=== PATIENT | female | born 1990 | race African-American/Black ===

== ENCOUNTER 2017-03-31 16:15 | Emergency (ER) | payer OTHER ==
[~2017-03-31] VITALS: Ht 162.6 cm; Wt 86.2 kg
[~2017-03-31 16:15] MED LIST: NAPR500T3 PO; TRAM50TA PO
[2017-03-31 16:22] VITALS: BP 138/78
--- NOTE | 2017-03-31 17:03 | PHYS DOC ---
Past History Past Medical History: Depression, Other Past Surgical History: No Surgical History Smoking: Cigarettes, Less than 1pk/day Alcohol Use: None Drug Use: Marijuana Adult General Chief Complaint Chief Complaint: ABSCESS HPI HPI This 26-year-old lady presents to us of her right jaw.. She states that this been going on for the past couple of days and was worried that this it might be a brown spider bite History of present stone pain and tenderness of the right jawline with a obvious blistering abscess this area Review of Systems Review of Systems Constitutional: Denies fever or chills [] Eyes: Denies change in visual acuity, redness, or eye pain [] HENT: Denies nasal congestion or sore throat [] abscess in the right jawline Respiratory: Denies cough or shortness of breath [] Cardiovascular: No additional information not addressed in HPI [] GI: Denies abdominal pain, nausea, vomiting, bloody stools or diarrhea [] : Denies dysuria or hematuria [] Musculoskeletal: Denies back pain or joint pain [] Integument: Denies rash or skin lesions there is a skin lesion at the right jawline Black about 1 cm diameter Neurologic: Denies headache, focal weakness or sensory changes [] Endocrine: Denies polyuria or polydipsia [] Allergies Allergies Allergies Coded Allergies Type Severity Reaction Last Updated Verified Penicillins Allergy Unknown 03/31/17 Yes Physical Exam Physical Exam Constitutional: Well developed, well nourished, no acute distress, non-toxic appearance. [] HENT: Normocephalic, atraumatic, bilateral external ears normal, oropharynx moist, no oral exudates, nose normal. [] Eyes: PERRLA, EOMI, conjunctiva normal, no discharge. [] Neck: Normal range of motion, no tenderness, supple, no stridor. [] Cardiovascular:Heart rate regular rhythm, no murmur [] Lungs & Thorax: Bilateral breath sounds clear to auscultation [] Abdomen: Bowel sounds normal, soft, no tenderness, no masses, no pulsatile masses. [] Skin: Warm, dry, no erythema, no rash. [] Back: No tenderness, no CVA tenderness. [] Extremities: No tenderness, no cyanosis, no clubbing, ROM intact, no edema. [] Neurologic: Alert and oriented X 3, normal motor function, normal sensory function, no focal deficits noted. [] Psychologic: Affect normal, judgement normal, mood normal. [] Current Patient Data Vital Signs Vital Signs Date Time Temp Pulse Resp B/P (MAP) Pulse Ox O2 Delivery O2 Flow Rate FiO2 03/31/17 16:22 98.1 94 18 100 Room Air EKG EKG [] Radiology/Procedures Radiology/Procedures 1% lidocaine was infiltrated into and around the area was then opened with an 11 blade and culture taken about 1 mL of pus was expressed Impressions: Facial abscess Course & Med Decision Making Course & Med Decision Making Pertinent Labs and Imaging studies reviewed. (See chart for details) Cultures were taken and patient was placed on clindamycin 300 mg by mouth every 6 hours and also given hydrocodone for pain and instructed to scrub the area 2- 3 times daily with soap and water and applied triple antibiotic ointment [] Dragon Disclaimer Dragon Disclaimer This chart was dictated in whole or in part using Voice Recognition software in a busy, high-work load, and often noisy Emergency Department environment. It may contain unintended and wholly unrecognized errors or omissions. Departure Departure: Referrals: PCP,NO (PCP) TYRONE RODRIGUEZ MD March 31, 2017 17:03
[2017-03-31] MEDS ORDERED: HYDR-2758 PO (17:06)
[2017-03-31] MEDS ORDERED: CLIN300C8 PO (17:06)
[2017-03-31] MEDS ORDERED: LIDOCAINE 1% Multi-Dose 20 ML VIAL. IJ ONE (17:15)
== END 2017-03-31 17:13 | disposition home or self-care (01) ==
LOC: ER 16:15
DX: L02.01 Cutaneous abscess of face (principal); F17.210 Nicotine dependence, cigarettes, uncomplicated; F12.10 Cannabis abuse, uncomplicated; Z88.0 Allergy status to penicillin
CPT/HCPCS: 10060; 87070; 99283-25

== ENCOUNTER 2017-05-23 08:18 | Emergency (ER) | payer OTHER ==
[~2017-05-23] VITALS: Ht 154.9 cm; Wt 87.1 kg
[~2017-05-23 08:18] MED LIST changes: +CLIN300C8 PO; +HYDR-2758 PO
[2017-05-23 09:20] VITALS: BP 128/85
[2017-05-23] MEDS ORDERED: CYCL-331 PO (09:20)
[2017-05-23] MEDS ORDERED: METH4TAB2 PO (09:20)
--- NOTE | 2017-05-23 09:21 | PHYS DOC ---
Past History Past Medical History: Depression, Other Past Surgical History: No Surgical History Smoking: Cigarettes, Less than 1pk/day Alcohol Use: None Drug Use: Marijuana Adult General Chief Complaint Chief Complaint: NECK INJURY HPI HPI Patient is a 26 year old female who presents with complaint of neck and back pain. Patient states that she has been having ongoing problems with pain over the past several weeks. Patient states the pain has been along her neck and upper back. 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 Over the past 2-3 days the patient states that her pain has gotten worse. Patient has had visits to the emergency department for treatment which has provided temporary relief. Patient however does not have a primary physician at this time and has not been able to pursue follow-up care. Patient denies any atypical symptoms associated with her pain, specifically no evidence of fevers, changes in vision, unilateral weakness, difficulty with speech or swallowing. Patient states that she also has pain that radiates from her back towards her chest wall. Patient states that she was told 8 years ago that she would need to have a breast reduction as this may lead to problems with back pain. Patient states that her pain is consistent with this assessment. Patient came to the emergency department as she continues to have pain and does not have medications that are able to control her symptoms adequately at this time. Patient rates her pain currently as 8 out of 10. Pain worsens with movement. Review of Systems Review of Systems Constitutional: Denies fever or chills [] Eyes: Denies change in visual acuity, redness, or eye pain [] HENT: Denies nasal congestion or sore throat [] Respiratory: Denies cough or shortness of breath [] Cardiovascular: Denies chest pain [] GI: Denies abdominal pain, nausea, vomiting, bloody stools or diarrhea [] : Denies dysuria or hematuria [] Musculoskeletal: Neck pain, back pain [] Integument: Denies rash or skin lesions [] Neurologic: Denies headache, focal weakness or sensory changes [] Allergies Allergies Allergies Coded Allergies Type Severity Reaction Last Updated Verified Penicillins Allergy Unknown 03/31/17 Yes Physical Exam Physical Exam Constitutional: Alert, afebrile, appears mild to moderate discomfort. [] HENT: Normocephalic, atraumatic, bilateral external ears normal, oropharynx moist, no oral exudates, nose normal. [] Eyes: PERRLA, EOMI, conjunctiva normal, no discharge. [] Neck: Bilateral paraspinous muscle tenderness to palpation running along distribution of trapezius muscles, no midline tenderness, mildly decreased range of motion secondary to pain, trachea midline, no stridor. [] Cardiovascular:Heart rate regular rhythm, no murmur [] Lungs & Thorax: Bilateral breath sounds clear to auscultation [] Abdomen: Bowel sounds normal, soft, no tenderness, no masses, no pulsatile masses. [] Skin: Warm, dry, no erythema, no rash. [] Back: Upper thoracic bilateral paraspinous muscle tenderness to palpation along distribution of trapezius muscles extending towards shoulders, no midline tenderness, no flank ecchymosis. [] Extremities: No obvious deformities, normal range of motion, pulses 2+ in all extremities Neurologic: Alert and oriented X 3, normal motor function, normal sensory function, no focal deficits noted. [] Current Patient Data Vital Signs Vital Signs Date Time Temp Pulse Resp B/P (MAP) Pulse Ox O2 Delivery O2 Flow Rate FiO2 05/23/17 09:20 93 20 128/85 (99) 97 Room Air 05/23/17 08:18 98.7 Lab Results Not performed EKG EKG Interpreted by me: Heart rate 86, sinus rhythm, normal intervals, normal axis, no acute ST/T-wave abnormalities present [] Radiology/Procedures Radiology/Procedures Not performed [] Course & Med Decision Making Course & Med Decision Making Pertinent Labs and Imaging studies reviewed. (See chart for details) Patient's symptoms are consistent with continued cervical and upper thoracic muscle strain. Patient's symptoms appear to be aggravated from her current job. The patient will be started on Medrol Dosepak and cyclobenzaprine to help with symptoms. Patient referred to family medicine for follow-up care. Recommended scheduled follow-up in one week for reevaluation. Advised return emergency department for any worsening symptoms. Patient voiced understanding and in agreement with treatment plan. Dragon Disclaimer Dragon Disclaimer This chart was dictated in whole or in part using Voice Recognition software in a busy, high-work load, and often noisy Emergency Department environment. It may contain unintended and wholly unrecognized errors or omissions. Departure Departure: Impression: Primary Impression: Cervical muscle strain Additional Impression: Upper back strain Disposition: 01 HOME, SELF-CARE Condition: STABLE Referrals: PCP,NO (PCP) Patient Instructions: Back Pain, Adult, Muscle Strain Additional Instructions: Follow-up with primary doctor in 1 week for reevaluation. Return to the emergency department for any worsening symptoms. Scripts Cyclobenzaprine Hcl (CYCLOBENZAPRINE HCL) 10 Mg Tablet 1 TAB PO TID Y for MUSCLE SPASMS, #30 TAB Prov: JELENA COREAS MD 05/23/17 Methylprednisolone (MEDROL) 4 Mg Tab.ds.pk 1 PKG PO UD, #1 PKG Prov: JELENA COREAS MD 05/23/17 Problem Qualifiers Primary Impression: Cervical muscle strain Encounter type: initial encounter Qualified Codes: S16.1XXA - Strain of muscle, fascia and tendon at neck level, initial encounter Additional Impression: Upper back strain Encounter type: initial encounter Qualified Codes: S29.012A - Strain of muscle and tendon of back wall of thorax, initial encounter JELENA COREAS MD May 23, 2017 09:20
--- NOTE | 2017-05-23 12:58 | EKG ---
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
== END 2017-05-23 09:25 | disposition home or self-care (01) ==
LOC: ER 08:18
DX: S39.012A Strain of muscle, fascia and tendon of lower back, initial encounter (principal); S16.1XXA Strain of muscle, fascia and tendon at neck level, initial encounter; F17.210 Nicotine dependence, cigarettes, uncomplicated; F12.10 Cannabis abuse, uncomplicated; Z88.0 Allergy status to penicillin; X58.XXXA Exposure to other specified factors, initial encounter; Y93.89 Activity, other specified; Y99.8 Other external cause status; Y92.89 Other specified places as the place of occurrence of the external cause
CPT/HCPCS: 93005; 99283-25

== ENCOUNTER 2019-06-01 18:55 | Emergency (ER) | payer OTHER ==
[~2019-06-01] VITALS: Ht 162.6 cm; Wt 108.9 kg
[~2019-06-01 18:55] MED LIST changes: +CYCL-331 PO; +HYDR-2155 PO; -HYDR-2758 PO; +METH4TAB2 PO; +NAPR-514 PO; -NAPR500T3 PO
[2019-06-01] MEDS ORDERED: IV NORMAL SALINE 1,000ML 1,000 ML IV SCH (19:16)
--- NOTE | 2019-06-01 19:28 | PHYS DOC ---
Past History Past Medical History: No Pertinent History, Depression, Diabetes, Other Past Surgical History: No Surgical History Smoking: Cigarettes, Less than 1pk/day Alcohol Use: None Drug Use: Marijuana Adult General Chief Complaint Chief Complaint: ABDOMINAL PAIN HPI HPI Patient is a 28-year-old female who presents with complaint of lower abdominal pain that has been off and on for the last few weeks. Patient states that she is approximately 10 weeks and states that she had been seen a few weeks ago at [facility] and was told at that time that she was 7 weeks . She states that she was told that her pain was being caused by urinary tract infection. She states that the pain had improved for period of time but has returned over the last couple of days. She rates pain as moderate and states the pain is worsened with certain movements like stretching from one side to the other. She states that it also hurts more when she lays flat on her back. She denies any nausea or vomiting. She also denies any fever.[] Review of Systems Review of Systems Constitutional: Denies fever or chills [] Respiratory: Denies cough or shortness of breath [] Cardiovascular: No additional information not addressed in HPI [] GI: Complains of lower abdominal pain without vomiting or diarrhea [] : Denies dysuria or hematuria [] Musculoskeletal: Complains of lower back pain [] All other systems were reviewed and found to be within normal limits, except as documented in this note. Current Medications Current Medications Current Medications Medications (Trade) Dose Ordered Sig/Radhika Start Time Stop Time Status Last Admin Dose Admin Sodium Chloride 1,000 ml @ 1,000 mls/hr Q1H 06/01/19 19:16 06/01/19 20:15 UNV Allergies Allergies Allergies Coded Allergies Type Severity Reaction Last Updated Verified Penicillins Allergy Unknown 03/31/17 Yes Physical Exam Physical Exam Constitutional: Well developed, well nourished, no acute distress, non-toxic appearance. [] HENT: Normocephalic, atraumatic, bilateral external ears normal, oropharynx moist, no oral exudates, nose normal. [] Eyes: PERRLA, EOMI, conjunctiva normal, no discharge. [] Neck: Normal range of motion, no tenderness, supple, no stridor. [] Cardiovascular:Heart rate regular rhythm, no murmur [] Lungs & Thorax: Bilateral breath sounds clear to auscultation [] Abdomen: Bowel sounds normal, soft, with mild lower abdominal tenderness. [] Skin: Warm, dry, no erythema, no rash. [] Extremities: No tenderness, no cyanosis, no clubbing, ROM intact. [] Neurologic: Alert and oriented X 3, no focal deficits noted. [] Current Patient Data Vital Signs Vital Signs Date Time Temp Pulse Resp B/P (MAP) Pulse Ox O2 Delivery O2 Flow Rate FiO2 06/01/19 19:03 98.1 64 20 98 Room Air EKG EKG [] Radiology/Procedures Radiology/Procedures [] Impressions: PROCEDURE: OB <14 WKS INDICATION: Pelvic pain COMPARISON: None. TECHNIQUE: Grayscale and color ultrasound images uterus and adnexa. FINDINGS: Uterus: 140 x 93 x 84 mm. Intrauterine gestational sac is identified with a pole with a heart beat of 163. [place]-rump length 34 mm. Too early in to adequately assess the placenta. Suspected hypoechoic lesion left ovary measuring up to 17 mm. Could be a cystic lesion. Right Ovary: 30 x 21 x 21 mm. Left Ovary: 35 x 30 x 29 mm. Vascular flow identified to bilateral ovaries. IMPRESSION: 1. Intrauterine is identified with estimated gestational age of 10 weeks and 2 days with a positive heartbeat. Recommend routine anomaly screening at 18-22 weeks. Electronically signed by: Siva Mackey MD (06/01/2019 8:34 PM) [facility] Course & Med Decision Making Course & Med Decision Making Pertinent Labs and Imaging studies reviewed. (See chart for details) [] Dragon Disclaimer Dragon Disclaimer This electronic medical record was generated, in whole or in part, using a voice recognition dictation system. Departure Departure: Impression: Primary Impression: Abdominal pain affecting Disposition: HOME, SELF-CARE Condition: STABLE Referrals: PCP,NO (PCP) Patient Instructions: Abdominal Pain During Scripts Ondansetron Hcl (ZOFRAN) 4 Mg Tablet 4 MG PO Q6HRS PRN for NAUSEA, #12 TAB Prov: SARAH ELIZABETH Jr. DO 06/01/19 Acetaminophen With Codeine (TYLENOL WITH CODEINE #3 TABLET) 1 Each Tablet 1 TAB PO Q6HRS PRN for PAIN, #12 TAB Prov: SARAH ELIZABETH Jr. DO 06/01/19 SARAH ELIZABETH Jr. DO Jun 01, 2019 19:28
[2019-06-01 20:14] LABS: BACTERIA,URINE 0 /HPF (0-FEW); BILIRUBIN,URINE NEG (NEG); CLARITY,URINE HAZY; COLOR,URINE YELLOW; GLUCOSE,URINE NEG (NEG); NITRITE,URINE NEG (NEG); RBC,URINE 0 /HPF (0-2); SQUAMOUS EPITHELIAL CELL,UR OCC /LPF; UROBILINOGEN,URINE 0.2 mg/dL (0.2 mg/dL); WBC,URINE 0 /HPF (0-4)
[2019-06-01 20:21] LABS: BASO # 0.1 x10^3/uL (0.0-0.2); BASO % 1 % (0-3); EOS # 0.2 x10^3/uL (0.0-0.7); EOS % 2 % (0-3); HEMATOCRIT 33.8 % (36.0-47.0); HEMOGLOBIN 10.8 g/dL (12.0-15.5); LYMPH % 28 % (24-48); MEAN CORPUSCULAR HEMOGLOBIN 28 pg (25-35); MEAN CORPUSCULAR HGB CONC 32 g/dL (31-37); MEAN CORPUSCULAR VOLUME 88 fL (79-100); MONO # 0.7 x10^3/uL (0.0-1.1); MONO % 10 % (0-9); NEUT # 4.2 x10^3uL (1.8-7.7); NEUT % 59 % (31-73); PLATELET COUNT 240 x10^3/uL (140-400); RED BLOOD COUNT 3.84 x10^6/uL (3.50-5.40); RED CELL DISTRIBUTION WIDTH 14.5 % (11.5-14.5); WHITE BLOOD COUNT 7.2 x10^3/uL (4.0-11.0)
[2019-06-01 20:34] LABS: CALCIUM 9.1 mg/dL (8.5-10.1); CREATININE 0.7 mg/dL (0.6-1.0); GFR 120.6; POTASSIUM 4.1 mmol/L (3.5-5.1)
--- NOTE | 2019-06-01 20:37 | RAD ---
INDICATION: Pelvic pain COMPARISON: None. TECHNIQUE: Grayscale and color ultrasound images uterus and adnexa. FINDINGS: Uterus: 140 x 93 x 84 mm. Intrauterine gestational sac is identified with a pole with a heart beat of 163. [place]-rump length 34 mm. Too early in to adequately assess the placenta. Suspected hypoechoic lesion left ovary measuring up to 17 mm. Could be a cystic lesion. Right Ovary: 30 x 21 x 21 mm. Left Ovary: 35 x 30 x 29 mm. Vascular flow identified to bilateral ovaries. IMPRESSION: 1. Intrauterine is identified with estimated gestational age of 10 weeks and 2 days with a positive heartbeat. Recommend routine anomaly screening at 18-22 weeks. Electronically signed by: Siva Mackey MD (06/01/2019 8:34 PM) [facility]
[2019-06-01] MEDS ORDERED: ONDA4TAB7 PO (21:12)
[2019-06-01] MEDS ORDERED: ACET-704 PO (21:12)
[2019-06-01] MEDS ORDERED: ACETAMINOPHEN/CODEINE 300/30MG TABLET ONE (21:45)
[2019-06-01] MEDS ORDERED: ACETAMINOPHEN/CODEINE 300/30MG TABLET PO ONE (21:45)
[2019-06-01 21:47] VITALS: BP 118/79
== END 2019-06-01 21:55 | disposition home or self-care (01) ==
LOC: ER 18:55
DX: O26.891 Other specified pregnancy related conditions, first trimester (principal); R10.30 Lower abdominal pain, unspecified; M54.5 Low back pain; O24.911 Unspecified diabetes mellitus in pregnancy, first trimester; O99.331 Smoking (tobacco) complicating pregnancy, first trimester; Z3A.10 10 weeks gestation of pregnancy; Z88.0 Allergy status to penicillin
CPT/HCPCS: 36415; 76801; 80048; 81001; 84702; 85025; 87086; 99285-25; J7030

== ENCOUNTER 2020-05-19 12:55 | Emergency (ER) | payer MEDICAID, OTHER ==
[~2020-05-19] VITALS: Ht 162.6 cm; Wt 46.8 kg
[~2020-05-19 12:55] MED LIST changes: +ACET-704 PO; +ONDA4TAB7 PO
[2020-05-19 13:01] VITALS: BP 127/100
[2020-05-19] MEDS ORDERED: LIDOCAINE 1% Multi-Dose 20 ML VIAL. ONE (13:49)
--- NOTE | 2020-05-19 13:56 | RAD ---
FINGER(S) LEFT History: Reason: laceration, trauma TO MIDDLE FINGER NAILBED / Spl. Instructions: / History: Pain. Technique: PA view the hand and 3 additional views of the third digit. Comparison: None. Findings: Normal alignment. No fracture. Third digit distal soft tissue swelling. No radiopaque foreign body. Impression: 1. No acute osseous abnormality. 2. Third distal digit soft tissue injury. Electronically signed by: Brock Clarke DO (05/19/2020 1:53 PM) [id number]
[2020-05-19] MEDS ORDERED: LIDOCAINE 1% Multi-Dose 20 ML VIAL. IJ ONE (14:00)
[2020-05-19] MEDS ORDERED: TRAM50TA PO (14:33)
--- NOTE | 2020-05-19 14:37 | PHYS DOC ---
Past History Past Medical History: Anxiety Past Surgical History: No Surgical History Smoking: Cigarettes, Less than 1pk/day Alcohol Use: Occasionally Drug Use: Marijuana Adult General Chief Complaint Chief Complaint: LACERATION/AVULSION HPI HPI Patient is a 29 year old [sex] who presents with male laceration of her nail. She was adjusting a chair when she got caught. She denies any other injuries. She has full sensation. Minimal bleeding. Review of Systems Review of Systems General: Denies fever, chills, sweats, fatigue Eyes: Denies drainage, blurred vision, eye redness HENT: Denies rhinorrhea, sore throat, earache Respiratory: Denies cough, shortness of breath, wheezing Cardiac: Denies edema, palpitations, chest pain GI: Denies abdominal pain, Nausea, vomiting MSK: Denies back pain, neck pain Skin: Denies rash, jaundice Neuro: Denies headache, dizziness Psychiatric: Denies SI/HI Current Medications Current Medications Current Medications Medications (Trade) Dose Ordered Sig/Radhika Start Time Stop Time Status Last Admin Dose Admin Lidocaine HCl 20 ml 1X ONCE 05/19/20 14:00 05/19/20 14:01 DC Allergies Allergies Allergies Coded Allergies Type Severity Reaction Last Updated Verified Penicillins Allergy Unknown 03/31/17 Yes Physical Exam Physical Exam General: Awake, alert, NAD. Well Nourished, well hydrated. Cooperative HEENT: Atraumatic, EOMI, PERRL, airway patent, moist oral mucosa Neck: Supple, trachea midline Respiratory: CTA bilaterally, normal effort, no wheezing/crackles CV: RRR, no murmur, cap refill <2 GI: Soft, nondistended, nontender, no masses MSK: No obvious deformities Skin: Warm, dry, 1 cm laceration through the third finger nailbed with minimal bleeding Neuro: A&O x3, speech NL, sensory and motor grossly intact, no focal deficits Psych: Normal affect, normal mood, not suicidal or homicidal Current Patient Data Vital Signs Vital Signs Date Time Temp Pulse Resp B/P (MAP) Pulse Ox O2 Delivery O2 Flow Rate FiO2 05/19/20 13:01 98.4 67 16 127/100 (109) 99 Room Air EKG EKG [] Radiology/Procedures Radiology/Procedures [] Course & Med Decision Making Course & Med Decision Making Pertinent Labs and Imaging studies reviewed. (See chart for details) Patient is a 29-year-old female who presents to the emergency room with a nailbed laceration. Avulsed nail was removed and the sutures were placed. Glue was also placed. Patient's test results and vitals while in the ED were fully reviewed and discussed with the patient. Patient is stable and at this time does not need admission to the hospital. We have discussed strict return precautions and the importance of following up with their Primary Care Physician. Patient stated understanding and was given an opportunity to ask any questions. Patient is in agreement with plan. Dragon Disclaimer Dragon Disclaimer This electronic medical record was generated, in whole or in part, using a voice recognition dictation system. Departure Departure: Impression: Primary Impression: Nailbed laceration, finger Disposition: HOME/RESIDENCE PRIOR TO ADM Condition: STABLE Referrals: PCP,NO (PCP) Patient Instructions: Nail Bed Injury, [id number] Scripts Tramadol Hcl (TRAMADOL HCL) 50 Mg Tablet 50 MG PO PRN Q6HRS PRN for PAIN for 2 Days, #3 TAB Prov: KAISER GHOTRA MD 05/19/20 Justification of Admission: Justification of Admission: Justification of Admission Dx: No Laceration/Wound Repair Laceration/Wound Repair : Wound Location: upper extremity Wound's Depth, Shape: nail-avulsed Wound Length (cm): 1 Wound Explored: no foreign body removed Betadine Prep?: No Anesthesia: 1% Lidocaine Wound Debrided: moderate Wound Repaired With: sutures, Dermabond Suture Size/Type: 5:0 Number of Sutures: 2 Layer Closure?: No Sterile Dressing Applied?: Yes Splint Applied?: No KAISER GHOTRA MD May 19, 2020 14:37
== END 2020-05-19 14:45 | disposition home or self-care (01) ==
LOC: ER 12:55
DX: S61.313A Laceration without foreign body of left middle finger with damage to nail, initial encounter (principal); F41.9 Anxiety disorder, unspecified; F17.210 Nicotine dependence, cigarettes, uncomplicated; Z88.0 Allergy status to penicillin; W23.0XXA Caught, crushed, jammed, or pinched between moving objects, initial encounter; Y93.89 Activity, other specified; Y92.89 Other specified places as the place of occurrence of the external cause; Y99.8 Other external cause status
CPT/HCPCS: 11730; 11760; 73140; 99284; 99285

== ENCOUNTER 2020-08-03 09:54 | Emergency (ER) | payer MEDICAID ==
[~2020-08-03] VITALS: Ht 167.6 cm; Wt 123.6 kg
--- NOTE | 2020-08-03 10:10 | PHYS DOC ---
Past History Past Medical History: Anxiety, Depression Past Surgical History: No Surgical History Smoking: Cigarettes, Less than 1pk/day Alcohol Use: Occasionally Drug Use: Marijuana General Adult EDM: Chief Complaint: ABDOMINAL PAIN HPI: HPI: The history was obtained from the patient. Patient is a 29-year-old female with PMH depression, anxiety who presents with a chief complaint of vomiting. Patient states just prior to arrival she developed sudden onset vomiting. She notes 2 episodes of nonbloody nonbilious emesis. She notes some mild left upper quadrant pain. States pain is aching in nature. She states she also developed shortness of breath after this. EMS states the patient did appear quite tachypneic and in respiratory distress in route. They state with breathing coaching her respiratory distress resolved. Patient denies any alcohol or drug ingestions. She endorses smoking tobacco. States she is currently menstruating. Denies any urinary symptoms. Denies syncope. Denies any previous abdominal surgical history. Does not take oral contraceptive pills. Denies any chest pain. States her shortness of breath is resolved. Denies cough or fever. Has not tried any medicine prior to arrival. States this is never happened before. Patient also notes she has been under a significant amount of stress recently. She notes that she is been fighting with her baby's father and she has lost 2 family members over the past month. Patient denies any history of immobilization greater than 48 hours, recent hospitalizations, recent surgery, recent trauma, , oral contraceptive usage, hormone replacement therapy, air travel greater than 8 hours, recent infectious disease, or general deterioration of their overall condition. Review of Systems: Review of Systems: Constitutional: Denies fever or chills Eyes: Denies change in visual acuity HENT: Denies nasal congestion or sore throat Respiratory: Positive for shortness of breath Cardiovascular: Denies chest pain or edema GI: Positive for abdominal pain and vomiting : Denies dysuria Musculoskeletal: Denies back pain or joint pain Integument: Denies rash Neurologic: Denies headache, focal weakness or sensory changes Endocrine: Denies polyuria or polydipsia Lymphatic: Denies swollen glands Psychiatric: Denies depression or anxiety Heart Score: Risk Factors: Risk Factors: DM, Current or recent (<one month) smoker, HTN, HLP, family history of CAD, obesity. Risk Scores: Score 0 - 3: 2.5% MACE over next 6 weeks - Discharge Home Score 4 - 6: 20.3% MACE over next 6 weeks - Admit for Clinical Observation Score 7 - 10: 72.7% MACE over next 6 weeks - Early Invasive Strategies Current Medications: Current Meds: Current Medications Medications (Trade) Dose Ordered Sig/Radhika Start Time Stop Time Status Last Admin Dose Admin Metoclopramide HCl (Reglan Vial) 10 mg 1X ONCE 08/03/20 10:15 08/03/20 10:16 Sodium Chloride 1,000 ml @ 1,000 mls/hr 1X ONCE 08/03/20 10:15 08/03/20 11:14 Allergies: Allergies: Allergies Coded Allergies Type Severity Reaction Last Updated Verified Penicillins Allergy Unknown 03/31/17 Yes Physical Exam: PE: Constitutional: Well developed, well nourished, no acute distress, non-toxic appearance. [] HENT: Normocephalic, atraumatic, bilateral external ears normal, oropharynx moist, no oral exudates, nose normal. [] Eyes: PERRLA, EOMI, conjunctiva normal, no discharge. [] Neck: Normal range of motion, no tenderness, supple, no stridor. [] Cardiovascular:Heart rate regular rhythm, no murmur [] Lungs & Thorax: Bilateral breath sounds clear to auscultation [] Abdomen: Mild reproducible left lower quadrant tenderness to palpation. No involuntary guarding or rigidity noted. No acute peritonitis. Skin: Warm, dry, no erythema, no rash. [] Back: No tenderness, no CVA tenderness. [] Extremities: No tenderness, no cyanosis, no clubbing, ROM intact, no edema. [] Neurologic: Alert and oriented X 3, normal motor function, normal sensory functi on, no focal deficits noted. [] Psychologic: Affect normal, judgement normal, mood normal. [] Current Patient Data: Labs: Laboratory Tests Test 08/03/20 10:20 08/03/20 10:28 08/03/20 10:48 Glucose (Fingerstick) 119 mg/dL White Blood Count 7.2 x10^3/uL Red Blood Count 4.06 x10^6/uL Hemoglobin 11.6 g/dL Hematocrit 35.7 % Mean Corpuscular Volume 88 fL Mean Corpuscular Hemoglobin 29 pg Mean Corpuscular Hemoglobin Concent 32 g/dL Red Cell Distribution Width 14.3 % Platelet Count 212 x10^3/uL Neutrophils (%) (Auto) 66 % Lymphocytes (%) (Auto) 23 % Monocytes (%) (Auto) 8 % Eosinophils (%) (Auto) 2 % Basophils (%) (Auto) 1 % Neutrophils # (Auto) 4.7 x10^3uL Lymphocytes # (Auto) 1.7 x10^3/uL Monocytes # (Auto) 0.5 x10^3/uL Eosinophils # (Auto) 0.1 x10^3/uL Basophils # (Auto) 0.1 x10^3/uL D-Dimer (Joi) 0.73 mg/L Maternal Serum HCG Beta Subunit < 1 mIU/mL Sodium Level 139 mmol/L Potassium Level 3.4 mmol/L Chloride Level 105 mmol/L Carbon Dioxide Level 25 mmol/L Anion Gap 9 Blood Urea Nitrogen 9 mg/dL Creatinine 1.0 mg/dL Estimated GFR (Cockcroft-Gault) 79.3 BUN/Creatinine Ratio 9 Glucose Level 121 mg/dL Calcium Level 8.5 mg/dL Magnesium Level 2.1 mg/dL Total Bilirubin 0.4 mg/dL Aspartate Amino Transf (AST/SGOT) 40 U/L Alanine Aminotransferase (ALT/SGPT) 23 U/L Alkaline Phosphatase 156 U/L Total Protein 7.9 g/dL Albumin 3.5 g/dL Albumin/Globulin Ratio 0.8 Lipase 225 U/L Ethyl Alcohol Level < 10 mg/dL Urine Collection Type Unknown Urine Color Red Urine Clarity Turbid Urine pH Urine Specific [place] Urine Protein Urine Glucose (UA) mg/dL Urine Ketones (Stick) mg/dL Urine Blood Urine Nitrite Urine Bilirubin Urine Urobilinogen Dipstick mg/dL Urine Leukocyte Esterase Urine RBC Tntc /HPF Urine WBC 1-4 /HPF Urine Squamous Epithelial Cells Mod /LPF Urine Bacteria 0 /HPF Urine Opiates Screen Neg Urine Methadone Screen Neg Urine Barbiturates Neg Urine Phencyclidine Screen Neg Urine Amphetamine/Methamphetamine Neg Urine Benzodiazepines Screen Neg Urine Cocaine Screen Neg Urine Cannabinoids Screen Pos Urine Ethyl Alcohol Neg Current Medications Medications (Trade) Dose Ordered Sig/Radhika Route PRN Reason Start Time Stop Time Status Last Admin Dose Admin Sodium Chloride 1,000 ml @ 1,000 mls/hr 1X ONCE IV 08/03/20 10:15 08/03/20 11:14 DC 08/03/20 10:37 Metoclopramide HCl (Reglan Vial) 10 mg 1X ONCE IVP 08/03/20 10:15 08/03/20 10:16 DC 08/03/20 10:37 Dicyclomine HCl (Bentyl) 20 mg 1X ONCE PO 08/03/20 12:15 08/03/20 12:16 DC 08/03/20 12:10 Famotidine (Pepcid) 20 mg 1X ONCE PO 08/03/20 12:15 08/03/20 12:16 DC 08/03/20 12:09 Ketorolac Tromethamine (Toradol 15mg Vial) 15 mg 1X ONCE IVP 08/03/20 12:15 08/03/20 12:16 DC 08/03/20 12:09 Iohexol (Omnipaque 350 Mg/ml) 100 ml 1X ONCE IV 08/03/20 12:15 08/03/20 12:16 DC 08/03/20 12:15 Info (Do NOT chart on this entry -- for MONITORING) 1 each PRN DAILY PRN MC SEE COMMENTS 08/03/20 12:15 08/05/20 12:14 Vital Signs: Vital Signs Date Time Temp Pulse Resp B/P (MAP) Pulse Ox O2 Delivery O2 Flow Rate FiO2 08/03/20 09:58 98.4 55 16 168/82 (110) 100 Room Air EKG: EKG: [] EKG consistent with normal sinus rhythm. Ventricular rate of 54 bpm. [place] normal. Flipped T waves noted in lead III. No acute ischemic changes appreciated. Intervals normal. Radiology/Procedures: Radiology/Procedures: [address] [address] IMAGING REPORT Signed PATIENT: MANSOOR GUILLEN ACCOUNT: [id number] : 1990 LOCATION: ER AGE: 29 SEX: F EXAM STATUS: REG ER ORD. PHYSICIAN: BEV BOSE DO REASON: SOB. concern for PE -100mls omni 350 PROCEDURE: CT ANGIOGRAPHY CHEST Examination: CT ANGIOGRAPHY CHEST History: SOB. concern for PE -100mls omni 350 Comparison/Correlation: None Findings: Axial images of the chest were obtained following IV contrast clinical history arteriography protocol. Maximum intensity projection images provided. Sagittal and coronal reformatted images provided. Conus medullaris appears normal with no thromboembolic disease. Tracheobronchial tree is unremarkable. No infiltrate or pleural effusion. No pneumothorax. No enlarged thoracic lymph nodes. Thoracic aorta morphology is grossly unremarkable. Small hiatal hernia is present. Minimal contrast suggested within the partially visualized upper pelvic calyceal systems. Renal calculus involving excluded. Bony structures are unremarkable. Impression: No PE or infiltrate. Small hiatal hernia. RS Compliance Statement: One or more of the following individualized dose reduction techniques were utilized for this examination: 1. Automated exposure control 2. Adjustment of the mA and/or kV according to patient size 3. Use of iterative reconstruction technique Electronically signed by: Edward Gonzalez MD (08/03/2020 1:09 PM) [id number] DICTATED AND SIGNED BY: EDWARD GONZALEZ MD DATE: 08/03/20 1309 CC: PCP,NO; BEV BOSE DO ~ [][address] [address] IMAGING REPORT Signed PATIENT: MANSOOR GUILLEN ACCOUNT: [id number] : 1990 LOCATION: ER AGE: 29 SEX: F EXAM STATUS: REG ER ORD. PHYSICIAN: BEV BOSE DO REASON: confusion - wait for preg test PROCEDURE: CT HEAD WO CONTRAST CT HEAD WO CONTRAST Date: 08/03/2020 10:01 AM Clinical Indication: Reason: confusion - wait for preg test / Spl. Instructions: / History: Comparison: None. Technique: 5 mm axial tomographic images were obtained of the head without contrast. These were viewed on brain and bone windows. One or more of the following dose reduction techniques were utilized: Automated exposure control (AEC), Adjustment of mA and/or kV according to patient size, Use of iterative reconstruction technique such as ASiR, CT scan done according to ALARA and image gently/image wisely Findings: The brain parenchyma is normal in attenuation. No intra- or extra-axial mass or fluid collection. No acute hemorrhage. The ventricles are normal in size, shape, and morphology. The rogel-white matter junction is normal. The subarachnoid cisterns are patent. The visualized paranasal sinuses are normal. The visualized portions of the orbits and globes are normal. The mastoid air cells are clear. The transmitter supervisor topogram shows no lytic lesion or fracture. Impression: No acute intracranial process. Electronically signed by: Melvin Castellano MD (08/03/2020 11:13 AM) [id number] DICTATED AND SIGNED BY: MELVIN CASTELLANO MD DATE: 08/03/20 1111 CC: PCP,NO; BEV BOSE DO ~ Course & Med Decision Making: Course & Med Decision Making Pertinent Labs and Imaging studies reviewed. (See chart for details) [] Patient is a 29-year-old female who presents with chief complaint of sudden onset shortness of breath with vomiting. Initial vital signs unremarkable. EKG unremarkable. Given my estimation that the patient is low risk for Wells criteria and PERC criteria d-dimer was obtained. This was elevated. CT PE study was obtained and was unremarkable. Labs been grossly unremarkable as well. Remainder of work-up benign. Patient was given medication for her mild abdominal discomfort and vomiting. On repeat examination her symptoms have improved. She does have very mild elevation of her alk phos however she reproducible right upper quadrant tenderness, leukocytosis, fever. I have very low suspicion for gallbladder etiology. At this time patient is appropriate for discharge home. She will be discharged home with nausea medication. Instructed to follow-up with her primary care physician in the next 2 to 3 days. Return precautions discussed and understood. Stable for discharge home. Kristopher Disclaimer: Kristopher Disclaimer: This electronic medical record was generated, in whole or in part, using a voice recognition dictation system. Departure Departure: Impression: Primary Impression: Abdominal pain Qualified Codes: R10.32 - Left lower quadrant pain Additional Impression: Nausea Disposition: 01 HOME/RESIDENCE PRIOR TO ADM Condition: STABLE Referrals: PCP,NO (PCP) Additional Instructions: Please follow-up with your primary care physician in the next 2 to 3 days. Discharge Abdominal Pain Re-Check Precautions: I'm unsure of the specific cause of your abdominal pain. However, at this point I feel that you are low risk for a life threatening emergency and that disc harge from the Emergency Department is safe. There is a very small possibility that you are just too early in your clinical course for our physical exam/labs/imaging to ascertain whether or not you have an emergent condition that could potentially cause permanent disability or be life threatening. As such, it is very important that you follow up with your primary doctor or return to the Emergency Department in 12-24 hours for re-assessment and further evaluation if clinically indicated. If you develop new or worsening symptoms then you should return to the Emergency Department immediately. Home Care Instructions: Abdominal Pain Many things may cause abdominal pain. Your ER visit might not show the exact reason you are having pain. In some cases, additional time is needed to determine if the cause is serious. Therefore you may be told to go home and watch for any changes or worsening in your condition. Before that, we may not know if you need more testing, or if hospitalization or surgery is necessary. If its not something serious, the pain may go away without treatment or get better with simple things like avoiding certain foods or medications. In the ER, your doctor asks you questions, examines you and in some cases, may order tests. These help doctors decide if the pain is from something serious. Tests are not always done and may not provide a definite answer. There can still be a problem, even with normal test results. Abdominal pain may be caused by something serious (like appendicitis), which is not obvious right away. Because of this, another checkup is needed to make sure you are OK. It is VERY IMPORTANT to follow up for a repeat exam, especially if you have any symptoms that are not going away or are getting worse. We recommend that you RETURN TO THE EMERGENCY ROOM IN 8-12 HOURS to be rechecked. If you cannot, you may follow up with your primary care doctor or clinic. It is important that you follow all of the instructions below. RETURN TO THE EMERGENCY ROOM IMMEDIATELY IF: The pain does not go away or gets worse. You have a fever. You keep throwing up and cannot keep anything down. You pass bloody or black stools. You develop new symptoms. HOME CARE INSTRUCTIONS Come back to the ER (or see your doctor) in 8-12 hours. DO NOT take laxatives unless directed by your doctor. Avoid the use of alcohol Take pain medicine only as directed by your doctor. Only take [id number] or prescription medicine as directed by your doctor. Try a clear liquid diet (broth, tea, jello, water) for the next 12-24 hours. Slowly move to a bland diet as tolerated. Do not eat greasy, fatty or spicy foods. Once you start getting better, go back to a normal, healthy diet, slowly over a few days. DISCHARGE PT INSTRUCTIONS: YOU HAVE BEEN EVALUATED FOR ABDOMINAL PAIN. HOWEVER, WE ARE UNABLE TO PROVIDE A DEFINITE CAUSE OF YOUR SYMPTOMS. EVEN THOUGH YOUR TESTS MAY HAVE BEEN NORMAL, YOU STILL COULD HAVE A SERIOUS CAUSE FOR YOUR ABDOMINAL PAIN, INCLUDING APPENDICITIS. THE BEST TEST TO DETERMINE IF YOU HAVE A SERIOUS CAUSE IS RE-EXAMINATION OVER TIME. WE USED TO ADMIT PATIENTS TO THE HOSPITAL FOR THIS, BUT CAN NOW ALLOW YOU TO GO HOME, & RETURN TO OUR ER THE NEXT DAY FOR RE- EXAMINATION. THUS, WE WOULD LIKE YOU TO RETURN TO OUR ER TOMORROW FOR YOUR RE- EVALUATION. (IF YOUR SYMPTOMS HAVE GONE AWAY, THEN YOU DO NOT NEED TO RETURN.) IF YOUR SYMPTOMS GET WORSE BETWEEN NOW & THEN, YOU SHOULD RETURN IMMEDIATELY & NOT WAIT UNTIL TOMORROW. SYMPTOMS TO LOOK FOR WORSENING PAIN, HIGH FEVER, PERSISTENT VOMITING [NOT CONTROLLED BY MEDICINE], AND/OR OVERALL WORSENING OF YOUR CONDITION. Scripts Ondansetron Hcl (ZOFRAN) 8 Mg Tablet 4 MG PO TID PRN PRN for NAUSEA, #9 TAB Prov: BEV BOSE DO 08/03/20 Dicyclomine Hcl (DICYCLOMINE HCL) 20 Mg Tablet 20 MG PO QIDPRN PRN for PAIN, #16 TAB Prov: BEV BOSE DO 08/03/20 Justification of Admission: Justification of Admission: Justification of Admission Dx: N/A BEV BOSE DO Aug 03, 2020 10:10
[2020-08-03] MEDS ORDERED: IV NORMAL SALINE 1,000ML 1,000 ML IV ONE (10:15)
[2020-08-03] MEDS ORDERED: METOCLOPRAMIDE HCL 10 MG/2 ML VIAL. IVP ONE (10:15)
--- NOTE | 2020-08-03 10:36 | EKG ---
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
[2020-08-03 10:52] LABS: BASO # 0.1 x10^3/uL (0.0-0.2); BASO % 1 % (0-3); EOS # 0.1 x10^3/uL (0.0-0.7); EOS % 2 % (0-3); HEMATOCRIT 35.7 % (36.0-47.0); HEMOGLOBIN 11.6 g/dL (12.0-15.5); LYMPH # 1.7 x10^3/uL (1.0-4.8); LYMPH % 23 % (24-48); MEAN CORPUSCULAR HEMOGLOBIN 29 pg (25-35); MEAN CORPUSCULAR HGB CONC 32 g/dL (31-37); MEAN CORPUSCULAR VOLUME 88 fL (79-100); MONO # 0.5 x10^3/uL (0.0-1.1); MONO % 8 % (0-9); NEUT # 4.7 x10^3uL (1.8-7.7); NEUT % 66 % (31-73); PLATELET COUNT 212 x10^3/uL (140-400); RED BLOOD COUNT 4.06 x10^6/uL (3.50-5.40); RED CELL DISTRIBUTION WIDTH 14.3 % (11.5-14.5); WHITE BLOOD COUNT 7.2 x10^3/uL (4.0-11.0)
[2020-08-03 11:03] LABS: CALCIUM 8.5 mg/dL (8.5-10.1); GFR 79.3; POTASSIUM 3.4 mmol/L (3.5-5.1)
[2020-08-03 11:07] LABS: ALBUMIN 3.5 g/dL (3.4-5.0); ALBUMIN/GLOBULIN RATIO 0.8 (1.0-1.7); MAGNESIUM 2.1 mg/dL (1.8-2.4); TOTAL BILIRUBIN 0.4 mg/dL (0.2-1.0); TOTAL PROTEIN 7.9 g/dL (6.4-8.2)
--- NOTE | 2020-08-03 11:16 | RAD ---
CT HEAD WO CONTRAST Date: 08/03/2020 10:01 AM Clinical Indication: Reason: confusion - wait for preg test / Spl. Instructions: / History: Comparison: None. Technique: 5 mm axial tomographic images were obtained of the head without contrast. These were viewed on brain and bone windows. One or more of the following dose reduction techniques were utilized: Automated exposure control (AEC), Adjustment of mA and/or kV according to patient size, Use of iterative reconstruction technique such as ASiR, CT scan done according to ALARA and image gently/image wisely Findings: The brain parenchyma is normal in attenuation. No intra- or extra-axial mass or fluid collection. No acute hemorrhage. The ventricles are normal in size, shape, and morphology. The rogel-white matter junction is normal. The subarachnoid cisterns are patent. The visualized paranasal sinuses are normal. The visualized portions of the orbits and globes are normal. The mastoid air cells are clear. The die out worker topogram shows no lytic lesion or fracture. Impression: No acute intracranial process. Electronically signed by: Toney Castellano MD (08/03/2020 11:13 AM) [id number]
[2020-08-03 11:17] LABS: BARBITURATES NEG (NEG); BENZODIAZEPINES NEG (NEG); CANNABINOIDS POS (NEG); COCAINE NEG (NEG); METHADONE NEG (NEG); OPIATES NEG (NEG); PHENCYCLIDINE NEG (NEG)
[2020-08-03 11:22] LABS: AMPHETAMINE/METHAMPHETAMINE NEG (NEG)
[2020-08-03 11:32] LABS: CLARITY,URINE TURBID; COLOR,URINE RED
[2020-08-03 11:34] LABS: BACTERIA,URINE 0 /HPF (0-FEW); RBC,URINE TNTC /HPF (0-2); SQUAMOUS EPITHELIAL CELL,UR MOD /LPF
[2020-08-03] MEDS ORDERED: DICYCLOMINE HCL 20 MG TABLET PO ONE (12:15)
[2020-08-03] MEDS ORDERED: KETOROLAC 15 MG/ML VIAL. IVP ONE (12:15)
[2020-08-03] MEDS ORDERED: FAMOTIDINE 20 MG TABLET PO ONE (12:15)
[2020-08-03] MEDS ORDERED: CONTRAST GIVEN. MC PRN (12:15)
[2020-08-03] MEDS ORDERED: IOHEXOL 350 MG/ML 100 ML VIAL. IV ONE (12:15)
[2020-08-03 12:56] VITALS: BP 129/67
--- NOTE | 2020-08-03 13:12 | RAD ---
Examination: CT ANGIOGRAPHY CHEST History: SOB. concern for PE -100mls omni 350 Comparison/Correlation: None Findings: Axial images of the chest were obtained following IV contrast clinical history arteriography protocol. Maximum intensity projection images provided. Sagittal and coronal reformatted images provided. Conus medullaris appears normal with no thromboembolic disease. Tracheobronchial tree is unremarkable. No infiltrate or pleural effusion. No pneumothorax. No enlarged thoracic lymph nodes. Thoracic aorta morphology is grossly unremarkable. Small hiatal hernia is present. Minimal contrast suggested within the partially visualized upper pelvic calyceal systems. Renal calculus involving excluded. Bony structures are unremarkable. Impression: No PE or infiltrate. Small hiatal hernia. PQRS Compliance Statement: One or more of the following individualized dose reduction techniques were utilized for this examination: 1. Automated exposure control 2. Adjustment of the mA and/or kV according to patient size 3. Use of iterative reconstruction technique Electronically signed by: Edward Chaudhari MD (08/03/2020 1:09 PM) [id number]
[2020-08-03] MEDS ORDERED: ONDA8TAB9 PO (13:19)
[2020-08-03] MEDS ORDERED: DICY20TA3 PO (13:19)
== END 2020-08-03 13:30 | disposition home or self-care (01) ==
LOC: ER 09:54
DX: R10.32 Left lower quadrant pain (principal); R06.02 Shortness of breath; R11.10 Vomiting, unspecified; F41.9 Anxiety disorder, unspecified; F32.9 Major depressive disorder, single episode, unspecified; F17.210 Nicotine dependence, cigarettes, uncomplicated; Z88.0 Allergy status to penicillin
CPT/HCPCS: 36415; 70450; 71275; 80053; 80307; 81001; 82947; 83690; 83735; 84702; 85025; 85379; 93005; 96361; 96374; 96375; 99285; G0480; J1885; J2765; J7030; Q9967

== ENCOUNTER 2020-11-22 19:26 | Emergency (ER) | payer MEDICAID ==
[~2020-11-22] VITALS: Ht 167.6 cm; Wt 127.7 kg
[~2020-11-22 19:26] MED LIST changes: -CLIN300C8 PO; +CLIN300C9 PO; +DICY20TA3 PO; +ONDA8TAB9 PO
--- NOTE | 2020-11-22 19:58 | PHYS DOC ---
Past History Past Medical History: Anxiety, Depression, Other Additional Past Medical Histor: BRADYCARDIA Past Surgical History: No Surgical History Smoking: Cigarettes, Less than 1pk/day Alcohol Use: Occasionally Drug Use: Marijuana Adult General Chief Complaint Chief Complaint: CHEST PAIN HPI HPI Patient is a 30-year-old female with a past medical history of anxiety, depression, ADHD and heartburn who presents with a chief complaint of chest pain. States it started approximately 4 days ago, is substernal with feelings of pressure and burning in her chest and up into her throat. States she has had this before and was worked up but nothing was found. States she does not take any medications currently, is a current smoker, occasional drinker and no drug use. Denies any recent traumas, travel, fevers, Covid/flu symptoms. States that family at home has no symptoms either. Cannot identify any aggravating or alleviating factors, but states at night when she lays down sometimes the burning gets worse. Denies dyspnea on exertion, orthopnea, PND or edema. States she is otherwise eating and drinking normally for her. States she is making urine and stool normally for her with no blood in either. States she has not taken her ADHD medicine in a couple of days because it seems to make her heartbeat fast and causes anxiety. Review of Systems Review of Systems Review of systems otherwise unremarkable outside of HPI Allergies Allergies Allergies Coded Allergies Type Severity Reaction Last Updated Verified Penicillins Allergy Unknown 03/31/17 Yes Physical Exam Physical Exam Constitutional: Well developed, well nourished, no acute distress, non-toxic appearance. [] HENT: Normocephalic, atraumatic, bilateral external ears normal, oropharynx moist, no oral exudates, nose normal. [] Eyes: conjunctiva normal, no discharge. [] Neck: Normal range of motion, no tenderness, supple, no stridor. [] Cardiovascular:Heart rate regular rhythm, no murmur [] Lungs & Thorax: Bilateral breath sounds clear to auscultation [] Abdomen: Bowel sounds normal, soft, no tenderness, no masses, no pulsatile masses. [] Skin: Warm, dry, no erythema, no rash. [] Back: No tenderness Extremities: No tenderness, no cyanosis, no clubbing, ROM intact, no edema. [] Neurologic: Alert and oriented X 3, normal motor function, normal sensory function, no focal deficits noted. [] Psychologic: Affect normal, judgement normal, mood normal. [] Current Patient Data Vital Signs Vital Signs Date Time Temp Pulse Resp B/P (MAP) Pulse Ox O2 Delivery O2 Flow Rate FiO2 11/22/20 19:26 88 20 127/76 (93) 96 Room Air Lab Results Laboratory Tests Test 11/22/20 19:45 Troponin I Quantitative < 0.017 ng/mL (0-0.055) EKG EKG EKG with a rate of 82, QRS of 84, QTc of 442, no STEMI. [] Radiology/Procedures Radiology/Procedures []IMPRESSION: No radiographic evidence of an acute cardiopulmonary process. Electronically signed by: Jose Bush MD (11/22/2020 8:11 PM) [id number] Heart Score HEART Score for Chest Pain: HEART Score for Chest Pain Response (Comments) Value History Slighlty/Non-Suspicious 0 ECG Normal 0 Age < 45 0 Risk Factors 1 or 2 Risk Factors 1 Troponin < Normal Limit 0 Total 1 Risk Factors: Risk Factors: DM, Current or recent (<one month) smoker, HTN, HLP, family history of CAD, obesity. Risk Scores: Risk Factors: DM, Current or recent (<one month) smoker, HTN, HLP, family history of CAD, obesity. Course & Med Decision Making Course & Med Decision Making Patient is a 30-year-old female that presents with 4 days of substernal chest discomfort with burning Vital signs not concerning. Physical exam noted above. EKG not concerning and noted above. Troponin normal. Chest x-ray not concerning. Low risk Wells. PERC negative. Given GI cocktail given patient's description of discomfort and history of heartburn. On reassessment patient's discomfort had resolved. Discussed need to begin an [id number]-bahvyrf heartburn medicine in the short-term until she sees a primary care physician. Discussed need for diet augmentation to prevent symptoms of GERD. Discussed the need to follow-up with her primary care or establish care with a primary care physician and call them first thing in the morning to set up a post ER follow-up visit to discuss her ED visit and need for further treatment of her GERD/heartburn. Patient grateful, verbalized understanding and agreed with plan of discharge. [] Dragon Disclaimer Dragon Disclaimer This electronic medical record was generated, in whole or in part, using a voice recognition dictation system. Departure Departure: Impression: Primary Impression: Chest pain Additional Impression: Heartburn Condition: GOOD Referrals: PCP,NO (PCP) DANNA TAYLOR MD Patient Instructions: Chest Pain (Nonspecific), Fshy-lo-Aeec, Heartburn, Odxa-[id number] Problem Qualifiers BUCK NAZARIO MD Nov 22, 2020 19:58
[2020-11-22] MEDS ORDERED: LIDO:MAALOX 1:1 20 ML SINGLE DOSE. PO ONE (20:00)
--- NOTE | 2020-11-22 20:14 | RAD ---
EXAM: CHEST 1 VIEW History: Chest pain COMPARISON: None available. TECHNIQUE: Single portable radiograph of the chest FINDINGS: The cardiac silhouette is unremarkable. The lungs are clear bilaterally. The costophrenic sulci are clear and well demarcated. IMPRESSION: No radiographic evidence of an acute cardiopulmonary process. Electronically signed by: Jose Bush MD (11/22/2020 8:11 PM) [id number]
[2020-11-22 20:45] VITALS: BP 129/75
--- NOTE | 2020-11-22 20:56 | EKG ---
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
== END 2020-11-22 21:00 | disposition home or self-care (01) ==
LOC: ER 19:26
DX: R07.89 Other chest pain (principal); R12 Heartburn; F41.9 Anxiety disorder, unspecified; F32.9 Major depressive disorder, single episode, unspecified; F17.210 Nicotine dependence, cigarettes, uncomplicated; F12.10 Cannabis abuse, uncomplicated; F90.9 Attention-deficit hyperactivity disorder, unspecified type; Z88.0 Allergy status to penicillin
CPT/HCPCS: 36415; 71045; 81025; 84484; 93005; 99285

== ENCOUNTER 2021-09-30 20:08 | Emergency (ER) | payer MEDICAID ==
[~2021-09-30] VITALS: Ht 167.6 cm; Wt 128.7 kg
[~2021-09-30 20:08] MED LIST changes: +CLIN-95 PO; -CLIN300C9 PO; -CYCL-331 PO; +CYCL10TA19 PO; +DICY20TA PO; -DICY20TA3 PO
--- NOTE | 2021-09-30 20:15 | PHYS DOC ---
Past History Past Medical History: Anxiety, Depression, UTI, Other Additional Past Medical Histor: BRADYCARDIA, adhd Past Surgical History: No Surgical History Smoking: Cigarettes, Less than 1pk/day Alcohol Use: Occasionally Drug Use: Marijuana General Adult HPI: HPI: "... I keep having dirty urines,,,, for marijuana.... I have not smoked marijuana for over 4 months.... But he get another dirty urine again they are going to bust my probation... " Patient is a 31 year old female who presents with above hx and complaints recurrent + urine test for Marijuana use. Patient denies any use of marijuana for over 4 months. Has not used any [id number] creams, or other personal salves or oils. Has not used any ewgs-luo-sofkruu herbal preparations or vitamins. Has had some dysuria. Patient denies any history of travel. No complaints of immunosuppression. No recent new medications. Patient does states she smokes tobacco. Pt. follows with Dr. Mayfield. Review of Systems: Review of Systems: Constitutional: Denies fever or chills Eyes: Denies change in visual acuity HENT: Denies nasal congestion or sore throat Respiratory: Denies cough or shortness of breath Cardiovascular: Denies chest pain or edema GI: Denies abdominal pain, nausea, vomiting, bloody stools or diarrhea : Complains of dysuria. Complaints of urine tests + for Marijuana Musculoskeletal: Denies back pain or joint pain Integument: Denies rash Neurologic: Denies headache, focal weakness or sensory changes Endocrine: Denies polyuria or polydipsia Lymphatic: Denies swollen glands Psychiatric: Denies depression or anxiety Family History: Family History: Noncontributory to presentation Current Medications: Current Meds: See nursing for home meds Allergies: Allergies: Allergies Coded Allergies Type Severity Reaction Last Updated Verified Penicillins Allergy Unknown 03/31/17 Yes Physical Exam: PE: Constitutional: no acute distress, non-toxic appearance. [] HENT: Normocephalic, atraumatic, bilateral external ears normal, oropharynx moist, no oral exudates, nose normal. [] Eyes: PERRLA, EOMI, conjunctiva normal, no discharge. [] Neck: Normal range of motion, no tenderness, supple, no stridor. [] Cardiovascular:Heart rate regular rhythm, no murmur [] Lungs & Thorax: Bilateral breath sounds equal apex scattered wheezes on auscultation [] Abdomen: Bowel sounds normal, soft, no tenderness, no masses, no pulsatile masses. Morbidly obese. Skin: Warm, dry, no erythema, no rash. [] Back: No tenderness, no CVA tenderness. [] Extremities: No tenderness, no cyanosis, no clubbing, ROM intact, lateral ankle edema. [] No cording appreciated Neurologic: Alert and oriented X 3, normal motor function, normal sensory function, no focal deficits noted. [] Psychologic: Affect stream anxious, judgement normal, mood normal. [] EKG: EKG: [] Radiology/Procedures: Radiology/Procedures: [] Heart Score: C/O Chest Pain: N/A Risk Factors: Risk Factors: DM, Current or recent (<one month) smoker, HTN, HLP, family history of CAD, obesity. Risk Scores: Score 0 - 3: 2.5% MACE over next 6 weeks - Discharge Home Score 4 - 6: 20.3% MACE over next 6 weeks - Admit for Clinical Observation Score 7 - 10: 72.7% MACE over next 6 weeks - Early Invasive Strategies Course & Med Decision Making: Course & Med Decision Making Pertinent Labs and Imaging studies reviewed. (See chart for details) Pt. look all items and foods she ingests or apply to her skin. Keep follow up with Dr. Mayfield. Patient to push vitamin C drinks. Patient take Bactrim DS twice a day for the next 7 days. Patient follow-up urine cultures. Patient take Diflucan 100 mg daily for 3 days after completing the Bactrim. Impression: 1. Dysuria-UTI [] Dragon Disclaimer: Dragon Disclaimer: This electronic medical record was generated, in whole or in part, using a voice recognition dictation system. Departure Departure: Referrals: PCP,NO (PCP) Scripts Fluconazole (DIFLUCAN) 100 Mg Tablet 100 MG PO DAILY for post antibiotic for 3 Days, #3 TAB Prov: TEX HAMILTON MD 09/30/21 Sulfamethoxazole/Trimethoprim (BACTRIM DS TABLET) 1 Each Tablet 1 TAB PO BID for UTI for 7 Days, #14 TAB 0 Refills Prov: TEX HAMILTON MD 09/30/21 Kristopher Disclaimer This chart was dictated in whole or in part using Voice Recognition software in a busy, high-work load, and often noisy Emergency Department environment. It may contain unintended and wholly unrecognized errors or omissions. TEX HAMILTON MD Sep 30, 2021 20:15
[2021-09-30 20:43] VITALS: BP 132/83
[2021-09-30 21:21] LABS: U PREG PATIENT NEGATIVE (NEG)
[2021-09-30 21:26] LABS: BARBITURATES NEG (NEG); BENZODIAZEPINES NEG (NEG); CANNABINOIDS NEG (NEG); COCAINE NEG (NEG); METHADONE NEG (NEG); OPIATES NEG (NEG); PHENCYCLIDINE NEG (NEG)
[2021-09-30 21:27] LABS: AMPHETAMINE/METHAMPHETAMINE NEG (NEG)
[2021-09-30 21:35] LABS: BILIRUBIN,URINE NEG (NEG); CLARITY,URINE CLEAR; COLOR,URINE YELLOW; GLUCOSE,URINE NEG (NEG)
[2021-09-30 21:36] LABS: BACTERIA,URINE MANY /HPF (0-FEW); NITRITE,URINE NEG (NEG); SQUAMOUS EPITHELIAL CELL,UR MOD /LPF; TRICHOMONAS,URINE PRESENT
[2021-09-30] MEDS ORDERED: SULF1TAB24 PO (21:42)
[2021-09-30] MEDS ORDERED: FLUC100T7 PO (21:42)
[2021-09-30] MEDS ORDERED: SMZ/TMP 800/160MG TABLET. PO ONE (22:00)
== END 2021-09-30 21:52 | disposition home or self-care (01) ==
LOC: ER 20:13
DX: N39.0 Urinary tract infection, site not specified (principal); R30.0 Dysuria; F41.9 Anxiety disorder, unspecified; F32.9 Major depressive disorder, single episode, unspecified; F17.210 Nicotine dependence, cigarettes, uncomplicated; F12.10 Cannabis abuse, uncomplicated; Z87.440 Personal history of urinary (tract) infections; Z88.0 Allergy status to penicillin
CPT/HCPCS: 36415; 80307; 81001; 81025; 87086; 99283

== ENCOUNTER 2021-11-30 20:25 | Emergency (ER) | payer OTHER ==
[~2021-11-30] VITALS: Ht 167.6 cm; Wt 134.4 kg
[~2021-11-30 20:25] MED LIST changes: +FLUC100T7 PO; +SULF1TAB24 PO
[2021-11-30] MEDS ORDERED: ONDANSETRON PF 4 MG/2 ML VIAL. IVP ONE (22:00)
[2021-11-30] MEDS ORDERED: KETOROLAC 15 MG/ML VIAL. IVP ONE (22:00)
[2021-11-30] MEDS ORDERED: FAMOTIDINE 20 MG/2 ML VIAL IVP ONE (22:00)
[2021-11-30] MEDS ORDERED: IV NORMAL SALINE 1,000ML 1,000 ML IV ONE (22:00)
[2021-11-30 22:53] LABS: BACTERIA,URINE FEW /HPF (0-FEW); BILIRUBIN,URINE NEG (NEG); CLARITY,URINE HAZY; COLOR,URINE YELLOW; GLUCOSE,URINE NEG (NEG); NITRITE,URINE NEG (NEG); RBC,URINE 0 /HPF (0-2); SQUAMOUS EPITHELIAL CELL,UR MANY /LPF; UROBILINOGEN,URINE 0.2 mg/dL (0.2 mg/dL)
[2021-11-30 23:04] LABS: BASO # 0.1 x10^3/uL (0.0-0.2); BASO % 1 % (0-3); EOS # 0.2 x10^3/uL (0.0-0.7); EOS % 3 % (0-3); HEMATOCRIT 36.5 % (36.0-47.0); HEMOGLOBIN 11.7 g/dL (12.0-15.5); LYMPH # 2.1 x10^3/uL (1.0-4.8); LYMPH % 29 % (24-48); MEAN CORPUSCULAR HEMOGLOBIN 28 pg (25-35); MEAN CORPUSCULAR HGB CONC 32 g/dL (31-37); MEAN CORPUSCULAR VOLUME 88 fL (79-100); MONO # 0.8 x10^3/uL (0.0-1.1); MONO % 11 % (0-9); NEUT % 55 % (31-73); PLATELET COUNT 230 x10^3/uL (140-400); RED BLOOD COUNT 4.16 x10^6/uL (3.50-5.40); WHITE BLOOD COUNT 7.2 x10^3/uL (4.0-11.0)
[2021-11-30 23:10] LABS: CALCIUM 8.3 mg/dL (8.5-10.1); CREATININE 0.8 mg/dL (0.6-1.0); GFR 101.2; POTASSIUM 3.8 mmol/L (3.5-5.1)
[2021-11-30 23:14] LABS: INFLUENZA A PATIENT NEGATIVE (NEGATIVE); INFLUENZA B PATIENT NEGATIVE (NEGATIVE)
[2021-11-30 23:15] LABS: ALBUMIN 3.1 g/dL (3.4-5.0); ALBUMIN/GLOBULIN RATIO 0.7 (1.0-1.7); MAGNESIUM 2.2 mg/dL (1.8-2.4); TOTAL BILIRUBIN 0.1 mg/dL (0.2-1.0); TOTAL PROTEIN 7.5 g/dL (6.4-8.2)
--- NOTE | 2021-11-30 23:29 | PHYS DOC ---
Past History Past Medical History: Anxiety, Depression, UTI, Other Additional Past Medical Histor: BRADYCARDIA, adhd Past Surgical History: No Surgical History Smoking: Cigarettes, Less than 1pk/day Alcohol Use: Occasionally Drug Use: Marijuana General Adult EDM: Chief Complaint: NAUSEA/VOMITING/DIARRHEA HPI: HPI: Patient is a [age] year old [sex] who presents with [] Review of Systems: Review of Systems: Constitutional: Denies fever or chills Eyes: Denies redness or eye pain HENT: Denies nasal congestion or sore throat Respiratory: Denies cough or shortness of breath Cardiovascular: Denies chest pain or palpitations GI: Denies abdominal pain, nausea, or vomiting : Denies dysuria or hematuria Musculoskeletal: Denies back pain or joint pain Integument: Denies rash or skin lesions Neurologic: Denies headache, focal weakness or sensory changes Complete systems were reviewed and found to be within normal limits, except as documented in this note. Current Medications: Current Meds: Current Medications Medications (Trade) Dose Ordered Sig/Radhika Start Time Stop Time Status Last Admin Dose Admin Famotidine (Pepcid Vial) 20 mg 1X ONCE 11/30/21 22:00 11/30/21 22:01 DC 11/30/21 22:34 20 MG Ketorolac Tromethamine (Toradol 15mg Vial) 15 mg 1X ONCE 11/30/21 22:00 11/30/21 22:01 DC 11/30/21 22:35 15 MG Ondansetron HCl (Zofran) 4 mg 1X ONCE 11/30/21 22:00 11/30/21 22:01 DC 11/30/21 22:34 4 MG Sodium Chloride 1,000 ml @ 1,000 mls/hr 1X ONCE 11/30/21 22:00 11/30/21 22:59 DC 11/30/21 22:34 1,000 MLS/HR Allergies: Allergies: Allergies Coded Allergies Type Severity Reaction Last Updated Verified Penicillins Allergy Unknown 03/31/17 Yes Physical Exam: PE: Constitutional: Well developed, well nourished, no acute distress, non-toxic appearance HENT: Normocephalic, atraumatic Eyes: PERRL, EOMI, conjunctiva normal, no discharge Neck: Normal range of motion, no tenderness, supple Lungs & Thorax: No respiratory distress, equal chest rise and fall Abdomen: Soft, no tenderness Skin: Warm, dry, no erythema, no rash Back: No tenderness, no CVA tenderness Extremities: No tenderness, ROM intact, no edema Neurologic: Alert and oriented X 3, normal motor function, normal sensory function, no focal deficits noted Psychologic: Affect normal, judgment normal Current Patient Data: Labs: Laboratory Tests Test 11/30/21 22:00 11/30/21 22:15 11/30/21 22:20 11/30/21 22:25 Urine Collection Type Void Urine Color Yellow Urine Clarity Hazy Urine pH 6.0 Urine Specific [place] >=1.030 Urine Protein Neg (NEG-TRACE) Urine Glucose (UA) Neg mg/dL (NEG) Urine Ketones (Stick) Neg mg/dL (NEG) Urine Blood Trace (NEG) Urine Nitrite Neg (NEG) Urine Bilirubin Neg (NEG) Urine Urobilinogen Dipstick 0.2 mg/dL (0.2 mg/dL) Urine Leukocyte Esterase Trace (NEG) Urine RBC 0 /HPF (0-2) Urine WBC 5-10 /HPF (0-4) Urine Squamous Epithelial Cells Many /LPF Urine Bacteria Few /HPF (0-FEW) POC Urine HCG, Qualitative hcg negative (Negative) Influenza Type A (Rapid) Negative (NEGATIVE) Influenza Type B (Rapid) Negative (NEGATIVE) SARS-CoV-2 Antigen (Rapid) Negative (NEGATIVE) White Blood Count 7.2 x10^3/uL (4.0-11.0) Red Blood Count 4.16 x10^6/uL (3.50-5.40) Hemoglobin 11.7 g/dL (12.0-15.5) L Hematocrit 36.5 % (36.0-47.0) Mean Corpuscular Volume 88 fL (79-100) Mean Corpuscular Hemoglobin 28 pg (25-35) Mean Corpuscular Hemoglobin Concent 32 g/dL (31-37) Red Cell Distribution Width 14.0 % (11.5-14.5) Platelet Count 230 x10^3/uL (140-400) Neutrophils (%) (Auto) 55 % (31-73) Lymphocytes (%) (Auto) 29 % (24-48) Monocytes (%) (Auto) 11 % (0-9) H Eosinophils (%) (Auto) 3 % (0-3) Basophils (%) (Auto) 1 % (0-3) Neutrophils # (Auto) 4.0 x10^3uL (1.8-7.7) Lymphocytes # (Auto) 2.1 x10^3/uL (1.0-4.8) Monocytes # (Auto) 0.8 x10^3/uL (0.0-1.1) Eosinophils # (Auto) 0.2 x10^3/uL (0.0-0.7) Basophils # (Auto) 0.1 x10^3/uL (0.0-0.2) Sodium Level 138 mmol/L (136-145) Potassium Level 3.8 mmol/L (3.5-5.1) Chloride Level 104 mmol/L (98-107) Carbon Dioxide Level 24 mmol/L (21-32) Anion Gap 10 (6-14) Blood Urea Nitrogen 14 mg/dL (7-20) Creatinine 0.8 mg/dL (0.6-1.0) Estimated GFR (Cockcroft-Gault) 101.2 BUN/Creatinine Ratio 18 (6-20) Glucose Level 124 mg/dL (70-99) H Calcium Level 8.3 mg/dL (8.5-10.1) L Magnesium Level 2.2 mg/dL (1.8-2.4) Total Bilirubin 0.1 mg/dL (0.2-1.0) L Aspartate Amino Transferase (AST) 18 U/L (15-37) Alanine Aminotransferase (ALT) 23 U/L (14-59) Alkaline Phosphatase 134 U/L (46-116) H Total Protein 7.5 g/dL (6.4-8.2) Albumin 3.1 g/dL (3.4-5.0) L Albumin/Globulin Ratio 0.7 (1.0-1.7) L Lipase 118 U/L (73-393) Vital Signs: Vital Signs Date Time Temp Pulse Resp B/P (MAP) Pulse Ox O2 Delivery O2 Flow Rate FiO2 11/30/21 21:25 98.3 106 20 119/75 (90) 99 Room Air EKG: EKG: [] Radiology/Procedures: Radiology/Procedures: [] Heart Score: C/O Chest Pain: N/A Course & Med Decision Making: Course & Med Decision Making Pertinent Lab studies reviewed. (See chart for details) Patient stable for discharge with outpatient follow-up with PCP. Discussed findings and plan with patient, who acknowledges understanding and agreement. Kristopher Disclaimer: Kristopher Disclaimer: This electronic medical record was generated, in whole or in part, using a voice recognition dictation system. Departure Departure: Impression: Primary Impression: Nausea Additional Impressions: Headache Qualified Codes: R51.9 - Headache, unspecified Viral syndrome Disposition: HOME / SELF CARE / HOMELESS Condition: STABLE Referrals: PCP,THANG (PCP) LANE VALDEZ MD Patient Instructions: Headache, FAQs, Nausea, Adult, [id number]-[id number], Viral Syndrome Additional Instructions: Increase fluid hydration. Scripts Ondansetron (ONDANSETRON ODT) 4 Mg Tab.rapdis 1 TAB PO PRN Q6-8HRS PRN for NAUSEA, #16 TAB Prov: WU HARRISON DO 11/30/21 Butalb/Acetaminophen/Caffeine (HAVJCW-YIMRGISU-AYQC 50-325-40) 1 Each Tablet 1 EACH PO Q6HRS PRN for HEADACHE, #14 TAB Prov: WU HARRISON DO 11/30/21 WU HARRISON DO Nov 30, 2021 23:29
[2021-11-30] MEDS ORDERED: BUTA1TAB23 PO (23:36)
[2021-11-30] MEDS ORDERED: ONDA4TAB12 PO ×2 (23:36→23:37)
[2021-11-30 23:45] VITALS: BP 118/72
[2021-11-30] MEDS ORDERED: BUTALB/APAP/CAFEIN 50/325/40MG TABLET. PO ONE (23:45)
== END 2021-11-30 23:53 | disposition home or self-care (01) ==
LOC: ER 20:25
DX: B34.9 Viral infection, unspecified (principal); F17.210 Nicotine dependence, cigarettes, uncomplicated; Z20.822 Contact with and (suspected) exposure to COVID-19; Z87.440 Personal history of urinary (tract) infections; Z88.0 Allergy status to penicillin
CPT/HCPCS: 36415; 80053; 81001; 81025; 83690; 83735; 85025; 87086; 87428; 96361; 96374; 96375; 99284; C9803; J1885; J2405; J3490; J7030; U0003